=== PATIENT | female | born 1985 | race Caucasian/White ===

== ENCOUNTER 2018-09-29 16:25 | Emergency (ER) | payer OTHER ==
[~2018-09-29] VITALS: Ht 167.6 cm; Wt 86.4 kg
[2018-09-29 16:26] VITALS: BP 128/72
[2018-09-29 16:53] LABS: BASO % 0.8 % (0.0-1.0); EOS # 0.1 10^3/uL (0.0-0.50); EOS % 3.4 % (0.0-3.0); HEMATOCRIT 39.8 % (36.0-47.0); HEMOGLOBIN 13.2 g/dl (12.0-15.5); LYMPH # 1.2 10^3/uL (1.5-4.5); LYMPH % 30.1 % (24.0-44.0); MEAN CORPUSCULAR HEMOGLOBIN 29.2 pg (27.0-33.0); MEAN CORPUSCULAR HGB CONC 33.2 g/dl (32.0-36.5); MEAN CORPUSCULAR VOLUME 88.1 fl (80.0-96.0); MONO # 0.5 10^3/uL (0.0-0.8); MONO % 11.9 % (0.0-5.0); NEUTROPHILS # 2.1 10^3/uL (1.8-7.7); NEUTROPHILS % 53.5 % (36.0-66.0); PLATELET COUNT, AUTOMATED 198 10^3/uL (150-450); RED BLOOD COUNT 4.52 10^6/uL (4.00-5.40); WHITE BLOOD COUNT 3.9 10^3/uL (4.0-10.0)
[2018-09-29 17:35] LABS: ALBUMIN 3.6 GM/DL (3.2-5.2); ALT/SGPT 22 U/L (12-78); BILIRUBIN,DIRECT < 0.1 MG/DL (0.0-0.2); BILIRUBIN,TOTAL 0.2 MG/DL (0.2-1.0); BLOOD UREA NITROGEN 6 MG/DL (7-18); CALCIUM LEVEL 8.5 MG/DL (8.5-10.1); CARBON DIOXIDE LEVEL 22 MEQ/L (21-32); CHLORIDE LEVEL 109 MEQ/L (98-107); CREATININE FOR GFR 0.79 MG/DL (0.55-1.30); GLOMERULAR FILTRATION RATE > 60.0 (>60); GLUCOSE, FASTING 104 MG/DL (70-100); LIPASE 112 U/L (73-393); POTASSIUM SERUM 4.1 MEQ/L (3.5-5.1); SODIUM LEVEL 140 MEQ/L (136-145); TOTAL PROTEIN 7.1 GM/DL (6.4-8.2)
[2018-09-29 17:52] LABS: HCG, SERUM QUALITATIVE NEGATIVE (NEGATIVE)
[2018-09-29] MEDS ORDERED: NS 1,000 ML IV ONE (18:30)
[2018-09-29] MEDS ORDERED: METOCLOPRAMIDE INJ 10MG/2ML VIAL (J2765) IV ONE (18:30)
[2018-09-29] MEDS ORDERED: KETOROLAC 30 MG/ML VIAL (J1885) IV ONE (18:30)
[2018-09-29] MEDS ORDERED: ISOVUE-370 76% 100ML VIAL (Q9967) As Ordered ONE (18:38)
[2018-09-29 19:36] LABS: INFLUENZA A AMPLIFICATION NEGATIVE (NEGATIVE); INFLUENZA B AMPLIFICATION NEGATIVE (NEGATIVE)
[2018-09-29] MEDS ORDERED: REGL10TA6 PO (20:02)
--- NOTE | 2018-09-29 20:16 | REPVR ---
EXAM: CT Angiography Chest With Contrast EXAM DATE/TIME: 09/29/2018 6:29 PM CLINICAL HISTORY: 33 years old, female; Pain; Other: Pleuritic chest pain; Additional info: Pleuritic cp, cough TECHNIQUE: Axial computed tomographic angiography images of the chest with intravenous contrast using CT angiography protocol. All CT scans at this facility use at least one of these dose optimization techniques: automated exposure control; mA and/or kV adjustment per patient size (includes targeted exams where dose is matched to clinical indication); or iterative reconstruction. Coronal and sagittal reformatted images were created and reviewed. MIP reconstructed images were created and reviewed. CONTRAST: 75 ml of ISOVUE 370 administered intravenously. COMPARISON: CR Chest, 2 view PA, Lat 06/01/2015 10:24 AM FINDINGS: Pulmonary arteries: Artifact limits evaluation of the right main pulmonary artery and proximal lobar branch to the right upper lobe, without occlusive embolism. The main pulmonary trunk, left main pulmonary arteries, and the remaining proximal lobar branches demonstrate no definite intraluminal filling defect to suggest pulmonary embolism. Aorta: Within the proximal descending thoracic aorta, there is a band of heterogeneous density, suggestive of artifact. There is no aneurysmal dilatation of the thoracic aorta. Lungs: Mild nonspecific groundglass density and dependent atelectatic changes are identified within the lower lobes bilaterally. Otherwise, there is no lung consolidation. No lung mass or dominant lung nodule. Pleural space: No pneumothorax. No pleural effusion. Heart: No cardiomegaly. No pericardial effusion. Mediastinum: Isodensity is visualized within the anterior mediastinum, likely representing thymic tissue. Lymph nodes: Nonspecific axillary lymph nodes are identified bilaterally. One of these lymph nodes is elongated within the right axilla measuring 2.0 cm, with a fatty hilum. Scattered mediastinal lymph nodes are identified, a few which are mildly enlarged. In the right paratracheal region, one of these lymph nodes measures 1.3 x 1.0 cm. A mildly enlarged left hilar lymph node is also visualized. Bones/joints: Mild degenerative changes are visualized within the thoracic spine. Soft tissues: Unremarkable. IMPRESSION: 1. No occlusive acute pulmonary embolism. 2. Mild nonspecific groundglass density and dependent atelectatic changes are identified within the lower lobes bilaterally. 3. Scattered mediastinal lymph nodes are identified, a few which are mildly enlarged. A mildly enlarged left hilar lymph node is also visualized. These lymph nodes are nonspecific as to etiology. 4. Additional CT findings described above. Electronically signed by: Nathen Hernandez On 09/29/2018 20:15:36 PM
[2018-09-29 21:12] LABS: MONO REFLEX EBV COMP NEGATIVE (NEGATIVE)
--- NOTE | 2018-09-30 13:00 | ED PDOC ---
Post-Departure Follow-Up certified letter sent to pt re formal read of cta chest for fu José Antonio Banks MD Sep 30, 2018 13:00
[2018-10-02 00:09] LABS: EBV VIRAL CAPSID AG IgG >600.0 U/mL (0.0-17.9); EBV VIRAL CAPSID AG IgM <36.0 U/mL (0.0-35.9)
== END 2018-09-29 20:26 | disposition left against medical advice (07) ==
LOC: M ED 16:25
DX: R10.84 Generalized abdominal pain (principal); R11.2 Nausea with vomiting, unspecified; R19.7 Diarrhea, unspecified; J45.909 Unspecified asthma, uncomplicated; Z88.1 Allergy status to other antibiotic agents
CPT/HCPCS: 71275; 80048; 80076; 83690; 84703; 85025; 86308; 86663; 86664; 86665; 87502; 96374; 96375; 99283; J1885; J2765; Q9967

== ENCOUNTER 2018-10-01 00:53 | Emergency (ER) | payer OTHER ==
[~2018-10-01] VITALS: Ht 167.6 cm; Wt 90.9 kg
[~2018-10-01 00:53] MED LIST: REGL10TA6 PO
[2018-10-01] MEDS ORDERED: ALBU17IN2 INH (01:09)
[2018-10-01] MEDS ORDERED: METOCLOPRAMIDE INJ 10MG/2ML VIAL (J2765) IV ONE (01:30)
[2018-10-01] MEDS ORDERED: methylPREDNISolone INJ 125 MG/2 ML VIAL (J2930) IV ONE (01:30)
[2018-10-01] MEDS ORDERED: NS 1,000 ML IV ONE (01:30)
[2018-10-01] MEDS ORDERED: KETOROLAC 30 MG/ML VIAL (J1885) IV ONE (01:30)
[2018-10-01] MEDS ORDERED: IPRATROPIUM 0.5MG/ALBUTEROL 2.5MG INH SOL UD 3ML (DUONEB)(J7620) NEB ONE (01:30)
[2018-10-01] MEDS ORDERED: ISOVUE-370 76% 100ML VIAL (Q9967) As Ordered ONE ×2 (01:44→02:11)
[2018-10-01 01:51] LABS: BASO % 0.4 % (0.0-1.0); EOS # 0.2 10^3/uL (0.0-0.50); EOS % 5.3 % (0.0-3.0); HEMOGLOBIN 12.9 g/dl (12.0-15.5); LYMPH # 2.2 10^3/uL (1.5-4.5); LYMPH % 49.2 % (24.0-44.0); MEAN CORPUSCULAR HEMOGLOBIN 29.1 pg (27.0-33.0); MEAN CORPUSCULAR HGB CONC 33.1 g/dl (32.0-36.5); MEAN CORPUSCULAR VOLUME 87.8 fl (80.0-96.0); MONO # 0.4 10^3/uL (0.0-0.8); MONO % 9.1 % (0.0-5.0); NEUTROPHILS # 1.6 10^3/uL (1.8-7.7); NEUTROPHILS % 35.8 % (36.0-66.0); PLATELET COUNT, AUTOMATED 220 10^3/uL (150-450); RED BLOOD COUNT 4.44 10^6/uL (4.00-5.40); WHITE BLOOD COUNT 4.5 10^3/uL (4.0-10.0)
[2018-10-01 02:03] LABS: HCG, SERUM QUALITATIVE NEGATIVE (NEGATIVE)
[2018-10-01 02:18] LABS: APPEARANCE, URINE CLOUDY (CLEAR); BACTERIA, URINE AUTO 2+ (NEGATIVE); BILIRUBIN, URINE AUTO NEGATIVE (NEGATIVE); BLOOD, URINE BLOOD 3+ (NEGATIVE); COLOR, URINE AMBER (YELLOW); GLUCOSE, URINE (UA) AUTO NEGATIVE (NEGATIVE); KETONE, URINE AUTO NEGATIVE (NEGATIVE); LEUKOCYTE ESTERASE, URINE AUTO NEGATIVE (NEGATIVE); NITRITE, URINE AUTO POSITIVE (NEGATIVE); PROTEIN, URINE AUTO 2+ mg/dL (NEGATIVE); RBC, URINE AUTO TNTC /HPF (0-3); SPECIFIC GRAVITY URINE AUTO 1.031 (1.002-1.035); SQUAMOUS EPITHELIAL CELL UR AU 7 /HPF (0-6); WBC, URINE AUTO 25 /HPF (0-3)
[2018-10-01 02:19] LABS: ALBUMIN 3.7 GM/DL (3.2-5.2); ALT/SGPT 27 U/L (12-78); BILIRUBIN,TOTAL 0.1 MG/DL (0.2-1.0); BLOOD UREA NITROGEN 10 MG/DL (7-18); CALCIUM LEVEL 9.1 MG/DL (8.5-10.1); CARBON DIOXIDE LEVEL 23 MEQ/L (21-32); CHLORIDE LEVEL 108 MEQ/L (98-107); CREATININE FOR GFR 0.91 MG/DL (0.55-1.30); GLOMERULAR FILTRATION RATE > 60.0 (>60); GLUCOSE, FASTING 135 MG/DL (70-100); POTASSIUM SERUM 3.5 MEQ/L (3.5-5.1); SODIUM LEVEL 141 MEQ/L (136-145); TOTAL PROTEIN 7.5 GM/DL (6.4-8.2)
--- NOTE | 2018-10-01 03:20 | REPVR ---
EXAM: CT Abdomen and Pelvis With Contrast EXAM DATE/TIME: 10/01/18 (1:36am) CLINICAL HISTORY: 33 year old female with generalized abdominal pain, not improving. Vomiting, and no bowel movements for days. TECHNIQUE: Axial computed tomography images of the abdomen and pelvis with intravenous contrast. All CT scans at this facility use at least one of these dose optimization techniques: automated exposure control; mA and/or kV adjustment per patient size (includes targeted exams where dose is matched to clinical indication); or iterative reconstruction. Coronal and sagittal reformatted images were created and reviewed. CONTRAST: 100 ml of Iso administered intravenously COMPARISON: CT ABDOMEN PELVIS of 01/29/14 FINDINGS: Lower thorax: No acute findings. No pleural effusions. ABDOMEN: Liver: Normal. No solid mass. Gallbladder and bile ducts: Contracted gallbladder. No calcified stones. No ductal dilatation. Pancreas: Normal. No ductal dilatation. Spleen: Mild splenomegaly. Adrenals: Normal. No mass. Kidneys and ureters: Normal. No hydronephrosis. Stomach and bowel: Distended stomach, filled with food debris and air. No bowel obstruction. No mucosal thickening. Appendix: A normal appendix is visualized. PELVIS: Bladder: Unremarkable as visualized. Reproductive: Unremarkable as visualized. A tampon is in place. Probable bilateral ovarian cysts (each approx. 14 mm size). ABDOMEN and PELVIS: Intraperitoneal space: Normal. No free air. No significant fluid collection. Bones/joints: No acute fracture nor dislocation. Soft tissues: Unremarkable. Vasculature: Normal. No abdominal aortic aneurysm. Lymph nodes: Normal. No enlarged lymph nodes. IMPRESSION: No acute findings. Mild splenomegaly. Electronically signed by: Mary Porter On 10/01/2018 03:20:07 AM
[2018-10-01 04:43] VITALS: BP 119/84
[2018-10-01] MEDS ORDERED: LEVO750T13 PO (04:43)
[2018-10-01] MEDS ORDERED: LevoFLOXacin 500 MG TABLET PO ONE (04:45)
--- NOTE | 2018-10-01 09:45 | ED PDOC ---
Post-Departure Follow-Up [facility] faxed formal report of ct abd/p for fu José Antonio Banks MD Oct 01, 2018 09:45
== END 2018-10-01 05:08 | disposition home or self-care (01) ==
LOC: M ED 00:53
DX: N39.0 Urinary tract infection, site not specified (principal); R91.8 Other nonspecific abnormal finding of lung field; R06.02 Shortness of breath; R11.2 Nausea with vomiting, unspecified; R05 Cough; R07.1 Chest pain on breathing; J45.909 Unspecified asthma, uncomplicated; F17.210 Nicotine dependence, cigarettes, uncomplicated; Z88.1 Allergy status to other antibiotic agents
CPT/HCPCS: 74177; 80053; 81001; 84703; 85025; 94640; 96374; 96375; 99284; J1885; J2765; J2930; Q9967

== ENCOUNTER → 2018-11-13 | Outpatient (REF) | payer OTHER, MEDICAID ==
[~2018-11-13] MED LIST changes: +ALBU17IN2 INH; +LEVO750T13 PO
[2018-11-13 18:31] LABS: ALBUMIN 3.7 GM/DL (3.2-5.2); ALT/SGPT 21 U/L (12-78); BILIRUBIN,TOTAL 0.3 MG/DL (0.2-1.0); BLOOD UREA NITROGEN 11 MG/DL (7-18); CALCIUM LEVEL 8.2 MG/DL (8.5-10.1); CARBON DIOXIDE LEVEL 22 MEQ/L (21-32); CHLORIDE LEVEL 112 MEQ/L (98-107); CHOLESTEROL LEVEL 173 MG/DL (<200); CHOLESTEROL RISK RATIO 5.242 (<5); CREATININE FOR GFR 0.89 MG/DL (0.55-1.30); FREE T4 1.01 NG/DL (0.76-1.46); GLOMERULAR FILTRATION RATE > 60.0 (>60); GLUCOSE, FASTING 111 MG/DL (70-100); HDL CHOLESTEROL 33 MG/DL (>40); LDL CHOLESTEROL 114 MG/DL (<100); NON-HDL-C 140 MG/DL; POTASSIUM SERUM 3.9 MEQ/L (3.5-5.1); SODIUM LEVEL 141 MEQ/L (136-145); TOTAL PROTEIN 7.2 GM/DL (6.4-8.2); TRIGLYCERIDES LEVEL 129 MG/DL (<150)
[2018-11-13 18:33] LABS: TOTAL 25(OH) VITAMIN D 17.5 NG/ML (30.0-100.0)
[2018-11-13 18:58] LABS: HEMOGLOBIN A1c 5.5 %
[2018-11-13 19:08] LABS: BASO # 0.1 10^3/uL (0.0-0.2); BASO % 0.7 % (0.0-1.0); EOS # 0.3 10^3/uL (0.0-0.50); EOS % 3.3 % (0.0-3.0); HEMATOCRIT 39.8 % (36.0-47.0); HEMOGLOBIN 13.1 g/dl (12.0-15.5); LYMPH # 3.2 10^3/uL (1.5-4.5); LYMPH % 42.6 % (24.0-44.0); MEAN CORPUSCULAR HEMOGLOBIN 29.2 pg (27.0-33.0); MEAN CORPUSCULAR HGB CONC 32.9 g/dl (32.0-36.5); MEAN CORPUSCULAR VOLUME 88.6 fl (80.0-96.0); MONO # 0.5 10^3/uL (0.0-0.8); MONO % 7.1 % (0.0-5.0); NEUTROPHILS # 3.5 10^3/uL (1.8-7.7); PLATELET COUNT, AUTOMATED 284 10^3/uL (150-450); RED BLOOD COUNT 4.49 10^6/uL (4.00-5.40); WHITE BLOOD COUNT 7.5 10^3/uL (4.0-10.0)
[2018-11-16 08:06] LABS: Lyme Disease IgG Ab 18 kDa Ban Absent (.); Lyme Disease IgG Ab 23 kDa Ban Absent (.); Lyme Disease IgG Ab 28 kDa Ban Absent (.); Lyme Disease IgG Ab 30 kDa Ban Absent (.); Lyme Disease IgG Ab 39 kDa Ban Absent (.); Lyme Disease IgG Ab 41 kDa Ban Absent (.); Lyme Disease IgG Ab 45 kDa Ban Absent (.); Lyme Disease IgG Ab 58 kDa Ban Absent (.); Lyme Disease IgG Ab 66 kDa Ban Absent (.); Lyme Disease IgG Ab 93 kDa Ban Present (.); Lyme Disease IgG West Blot Int Negative (.); Lyme Disease IgG/IgM Antibodie <0.91 ISR (0.00-0.90); Lyme Disease IgM Ab 23 kDa Ban Absent (.); Lyme Disease IgM Ab 39 kDa Ban Absent (.); Lyme Disease IgM Ab 41 kDa Ban Absent (.); Lyme Disease IgM Ab Quantitati 0.85 index (0.00-0.79); Lyme Disease IgM West Blot Int Negative (.)
== END ==
LOC: M LAB REF 17:09
PROVIDERS: ATTEND Family Medicine
DX: Z13.228 Encounter for screening for other metabolic disorders (principal)

== ENCOUNTER 2019-01-09 23:15 | Emergency (ER) | payer MEDICAID, OTHER ==
[~2019-01-09] VITALS: Ht 165.1 cm; Wt 98.2 kg
[2019-01-09] MEDS ORDERED: [UNRECOGNIZED DRUG - OTHER] (23:24)
[2019-01-09] MEDS ORDERED: ZONI100C2 PO (23:24)
[2019-01-09] MEDS ORDERED: VALA500T5 PO (23:24)
[2019-01-09] MEDS ORDERED: TIZA4TAB4 PO (23:24)
[2019-01-09] MEDS ORDERED: ESCI10TA2 PO (23:24)
[2019-01-09] MEDS ORDERED: TOPI25TA10 PO (23:24)
[2019-01-09] MEDS ORDERED: HYDR200T3 PO (23:24)
[2019-01-09] MEDS ORDERED: KETO0.02 (23:28)
[2019-01-10] MEDS ORDERED: NS 1,000 ML IV ONE (00:45)
[2019-01-10] MEDS ORDERED: diphenhydrAMINE INJ 50MG/ML VIAL (J1200) IV ONE (01:15)
[2019-01-10] MEDS ORDERED: KETOROLAC 30 MG/ML VIAL (J1885) IV ONE (01:15)
[2019-01-10] MEDS ORDERED: dexameTHASONE 20 MG/5 ML VIAL (J1100) IV ONE (01:15)
[2019-01-10] MEDS ORDERED: METOCLOPRAMIDE INJ 10MG/2ML VIAL (J2765) IV ONE (01:15)
--- NOTE | 2019-01-10 02:15 | REPVR ---
EXAM: CT Head Without Contrast EXAM DATE/TIME: 01/10/2019 1:16 AM CLINICAL HISTORY: 33 years old, female; Pain; Headache; Migraine; Aura effect not specified; Additional info: Migraine, L arm weakness TECHNIQUE: Imaging protocol: Axial computed tomography images of the head without contrast. Radiation optimization: All CT scans at this facility use at least one of these dose optimization techniques: automated exposure control; mA and/or kV adjustment per patient size (includes targeted exams where dose is matched to clinical indication); or iterative reconstruction. COMPARISON: No relevant prior studies available. FINDINGS: There is no acute intracranial hemorrhage, extra axial hematoma, or midline shift. The ventricles are not dilated. No CT findings are seen at the current time to suggest changes of acute territorial vascular infarction. Note is made however, that CT changes, may lag clinical findings in acute CVA. If clinically indicated, consideration could be given to MRI with diffusion weighted imaging, due to its greater sensitivity, for detection of acute ischemic change. No evidence of regional or global cerebral edema. No appreciable white matter changes are seen. Intracranial calcifications are incidentally noted. No pericranial scalp hematoma is seen. No acute cranial vault fracture is seen. No fluid is seen within the visualized mastoid air cells. Mucosal thickening and partial opacification noted within the left frontal sinus, both frontoethmoid recesses and several ethmoid air cells bilaterally. Mucosal thickening and some thickened fluid noted within the left sphenoid sinus. Mild mucosal thickening noted right sphenoid sinus. IMPRESSION: No evidence of acute territorial major vessel infarct, mass effect, or hemorrhage. Paranasal sinusitis. Electronically signed by: Jean Reagan On 01/10/2019 02:15:04 AM
[2019-01-10] MEDS ORDERED: REGL10TA6 PO (02:39)
[2019-01-10 02:56] VITALS: BP 122/60
== END 2019-01-10 02:55 | disposition home or self-care (01) ==
LOC: M ED 23:15
DX: G43.909 Migraine, unspecified, not intractable, without status migrainosus (principal); R20.0 Anesthesia of skin; M32.9 Systemic lupus erythematosus, unspecified; R56.9 Unspecified convulsions; Z79.899 Other long term (current) drug therapy; Z88.1 Allergy status to other antibiotic agents; F17.210 Nicotine dependence, cigarettes, uncomplicated
CPT/HCPCS: 70450; 96361; 96374; 96375; 99284; J1100; J1200; J1885; J2765

== ENCOUNTER 2024-07-29 15:25 | Emergency (ER) | payer OTHER ==
[~2024-07-29] VITALS: Ht 165.1 cm; Wt 117.7 kg
[~2024-07-29 15:25] MED LIST changes: -ALBU17IN2 INH; +ALBU6.7H6 INH; +ESCI10TA16 PO; +HYDR200T46 PO; +KETO5DRO33; +LEVO1TAB40 PO; -LEVO750T13 PO; +TIZA10TA PO; +TOPI25TA10 PO; +VALA500T5 PO; +ZONI100C67 PO; +[UNRECOGNIZED DRUG - OTHER]
[2024-07-29] MEDS ORDERED: ACETAMINOPHEN 500 MG TAB PO ONE (15:45)
[2024-07-29 17:01] LABS: BASO # 0.1 10^3/uL (0.0-0.2); EOS # 0.1 10^3/uL (0.0-0.5); EOS % 2.1 % (0.0-3.0); HEMATOCRIT 40.1 % (36.0-47.0); HEMOGLOBIN 13.6 g/dl (12.0-15.5); LYMPH # 0.8 10^3/uL (1.5-5.0); LYMPH % 15.1 % (24.0-44.0); MEAN CORPUSCULAR HEMOGLOBIN 30.3 pg (27.0-33.0); MEAN CORPUSCULAR HGB CONC 33.9 g/dl (32.0-36.5); MEAN CORPUSCULAR VOLUME 89.3 fl (80.0-96.0); MONO # 0.6 10^3/uL (0.0-0.8); MONO % 10.5 % (2.0-8.0); NEUTROPHILS # 3.7 10^3/uL (1.5-8.5); NEUTROPHILS % 70.9 % (36.0-66.0); PLATELET COUNT, AUTOMATED 213 10^3/uL (150-450); RED BLOOD COUNT 4.49 10^6/uL (4.00-5.40); WHITE BLOOD COUNT 5.2 10^3/uL (4.0-10.0)
[2024-07-29] MEDS: ACETAMINOPHEN *IV* 1,000 MG in IV 1 EA IV ONE (17:12)
[2024-07-29 17:28] LABS: CK-MB VALUE MASS < 1.0 NG/ML (<3.6)
[2024-07-29 17:32] LABS: HCG, SERUM QUALITATIVE NEGATIVE (NEGATIVE)
[2024-07-29 17:34] LABS: CPK CREATINE PHOSPHOKINASE 181 U/L (34-145); MB/CK RELATIVE INDEX 0.55 (< OR =4)
[2024-07-29] MEDS ORDERED: VENTAER INH (18:36)
[2024-07-29] MEDS ORDERED: BENZ200C70 PO (18:36)
[2024-07-29] MEDS ORDERED: ONDA-282 PO (18:36)
[2024-07-29] MEDS: BENZONATATE 100MG CAPSULE PO ONE (18:43)
[2024-07-29] MEDS: ONDANSETRON 4MG 2ML VIAL IV ONE (18:43)
[2024-07-29] MEDS: ALBUTEROL 90 MCG/ACT 8GM HFA INHALER INH ONE (18:58)
[2024-07-29 19:00] VITALS: BP 109/59; O2SAT 96
[2024-07-29 19:06] VITALS: TEMP 98.3
== END 2024-07-29 19:11 | disposition home or self-care (01) ==
LOC: M ED 15:25
DX: R04.2 Hemoptysis (principal); J09.X2 Influenza due to identified novel influenza A virus with other respiratory manifestations; Z88.1 Allergy status to other antibiotic agents; Z79.52 Long term (current) use of systemic steroids; Z79.899 Other long term (current) drug therapy; Z79.83 Long term (current) use of bisphosphonates
CPT/HCPCS: 71046; 80047; 82550; 82553; 84484; 84703; 85025; 87486; 87581; 87633; 87798; 93005; 93041; 94640; 94760; 96365; 96375; 99285; J0131; J2405